=== PATIENT | female | born 1970 | race Caucasian/White ===

== ENCOUNTER 2024-10-08 12:01 | Outpatient (CLI) | payer OTHER, SELFPAY ==
[2024-10-08 12:53] VITALS: PULSE 86; RESP 18; O2SAT 92
[2024-10-08] MEDS: albuterol 2.5 mg/3 mL Neb INHALATION (12:53)
== END 2024-10-08 12:02 | disposition home or self-care (01) ==
LOC: RT 12:07
PROVIDERS: Visit Provider Family Medicine
DX: Z02.71 Encounter for disability determination (principal); J44.9 Chronic obstructive pulmonary disease, unspecified
CPT/HCPCS: 94060; 94618; J7613